=== PATIENT | male | born 1965 | race Caucasian/White ===

== ENCOUNTER → 2017-10-21 08:56 | Outpatient (CLI) | payer OTHER, SELFPAY ==
[2017-10-21 10:19] LABS: Absolute Lymphocyte Count 2.39 X10^3/ul (0.83-4.51); Basophil% 0.8 % (0-1); Eosinophil# 0.24 X10^3/uL; Eosinophils% 1.8 % (0-5); Hematocrit 46.3 % (40-54); Hemoglobin 15.8 g/dl (13.0-16.5); Lymphocyte # 2.39 X10^3/ul (4.0); Lymphocyte % 18.2 % (19-41); Mean Corp Hgb Conc 34.1 g/gl (32-36); Mean Corpuscular Volume 87.9 fL (80-94); Mean Platelet Vol. 9.3 fl (6.2-12.0); Monocyte# 1.25 X10^3/uL; Monocyte% 9.5 % (0-10); Neutrophil # 8.99 X10^3/uL (2.7-7.7); Neutrophil % 68.7 % (47-70); Platelet Count 326 K/mm3 (150-450); RBC Distribution Width CV 14.4 % (11.6-14.6); RBC Distribution Width SD 46.5 fl (35.1-43.9); Red Blood Count 5.27 M/mm3 (4.6-6.2); White Blood Count 13.1 K/mm3 (4.4-11.0)
[2017-10-21 10:20] LABS: POSITIVE COUNT NO; POSITIVE DIFFERENTIAL NO; POSITIVE MORPHOLOGY NO
[2017-10-21 10:38] LABS: ALB/GLOB Ratio 0.9 RATIO (0.9-2.4); AST(SGOT) 24 U/L (15-37); Alanine Aminotransfer ALT/SGPT 46 U/L (16-61); Albumin, Serum 3.9 g/dL (3.2-5.0); Alkaline Phosphatase 162 U/L (45-117); Anion Gap 8 (5-15); BUN 14 mg/dL (7-18); BUN/Creat Ratio 15.6 RATIO (10-20); Calcium,Total 8.5 mg/dL (8.5-10.1); Chloride 104 mmol/L (98-107); EST Glomerular Filtration Rate 95 mL/min (>60); Est Glom Filt Rate - Afr Amer 114 mL/min (>60); Globulin 4.2 g/dL (2.2-4.2); Glucose 161 mg/dL (74-106); Potassium 4.5 mmol/L (3.5-5.1); Protein, Total 8.1 g/dL (6.4-8.2); Sodium Level 136 mmol/L (136-145); Thyroid Stim Hormone (TSH) 3.24 uIU/mL (0.358-3.74)
[2017-10-21 10:41] LABS: Hemoglobin A1c 6.8 % (4.2-6.3)
[2017-10-21 11:19] LABS: Vitamin D,25 Hydroxy 8.4 ng/mL (29.95-100.01)
[2017-10-21 13:27] LABS: Microalbumin,Random Urine 6.8 mg/L (NO RANGE EST.); Microalbumin:Creatinine Ratio 22.5 mg/g CRE (<30 mg/g CRE)
== END ==
PROVIDERS: Family Provider Family Medicine; PCP Family Medicine; Visit Provider Family Medicine
DX: E11.9 Type 2 diabetes mellitus without complications (principal); I10 Essential (primary) hypertension
CPT/HCPCS: 36415; 80053; 82043; 82306; 82570; 83036; 84443; 85025

== ENCOUNTER → 2018-04-03 08:29 | Outpatient (CLI) | payer OTHER, SELFPAY ==
[2018-04-03 10:47] LABS: Hemoglobin A1c 6.4 % (4.2-6.3)
[2018-04-03 10:56] LABS: ALB/GLOB Ratio 0.9 RATIO (0.9-2.4); AST(SGOT) 34 U/L (15-37); Alanine Aminotransfer ALT/SGPT 59 U/L (16-61); Albumin, Serum 3.7 g/dL (3.2-5.0); Alkaline Phosphatase 133 U/L (45-117); Anion Gap 12 (5-15); BUN 13 mg/dL (7-18); Calcium,Total 8.8 mg/dL (8.5-10.1); Chloride 103 mmol/L (98-107); Cholesterol 240 mg/dL (200); Creatinine, Serum 0.87 mg/dL (0.70-1.30); EST Glomerular Filtration Rate 98 mL/min (>60); Est Glom Filt Rate - Afr Amer 119 mL/min (>60); Globulin 4.1 g/dL (2.2-4.2); Glucose 162 mg/dL (74-106); High Density Lipoprotein 37 mg/dL; Potassium 4.5 mmol/L (3.5-5.1); Protein, Total 7.8 g/dL (6.4-8.2); Sodium Level 140 mmol/L (136-145); Triglycerides 385 mg/dL; Very Low Density Lipoprotein 77 mg/dL (5-40)
== END ==
LOC: MFPLAB 08:32
PROVIDERS: Family Provider Family Medicine; PCP Family Medicine; Visit Provider Family Medicine
DX: E11.9 Type 2 diabetes mellitus without complications (principal); I10 Essential (primary) hypertension; R51 Headache
CPT/HCPCS: 36415; 80053; 80061; 83036; 83735; 84443

== ENCOUNTER → 2019-11-06 07:54 | Outpatient (CLI) | payer OTHER, SELFPAY ==
--- NOTE | 2019-11-06 07:59 | US_ITS ---
STUDY: RENAL ULTRASOUND - COMPLETE REASON FOR EXAM: Male, 53 years old. NEPHROLITHIASIS TECHNIQUE: Ultrasound evaluation of the kidneys was performed with real-time and static garcia-scale imaging. COMPARISON: Comparison is made with prior ultrasound dated March 06, 2014. FINDINGS: RIGHT KIDNEY: Normal location of the right kidney, which is normal in size. The right kidney measures 12.6 cm x 5.2 cm x 5.7 cm. There is a normal cortex of the right kidney. The renal cortex measures 2.1 cm. There is a cyst measuring 1.2 cm x 0.6 cm x 1 cm. A nonobstructive calculus is seen measuring 4 mm x 4 mm x 2 mm. There is no right hydronephrosis. DISTAL RIGHT URETER: There is non-visualization of the distal right ureter. There is no demonstrated right ureterovesical junction calculus. There is a visualized right ureteral jet. LEFT KIDNEY: Normal location of the left kidney, which is normal in size. The left kidney measures 11.8 cm x 4.4 cm x 5.8 cm. There is a normal cortex of the left kidney. The renal cortex measures 1.7 cm. There is no left renal mass or cyst. There are no left renal calculi. There is no left hydronephrosis. DISTAL LEFT URETER: There is non-visualization of the distal left ureter. There is no demonstrated left ureterovesical junction calculus. There is no demonstrated left ureteral jet. BLADDER: The distended urinary bladder has a volume of 70 ml. There is a normal wall thickness of the distended urinary bladder. There is no demonstrated mass within the urinary bladder. There are no demonstrated bladder calculi. US/Kidney and Bladder IMPRESSION: 1.2 cm x 0.6 cm x 1 cm right renal cyst. 4 mm x 4 mm x 2 mm calculus in the right upper pole. Electronically Signed: Reinaldo Long, at 9:57 EDT , Service support ,
== END ==
PROVIDERS: PCP Family Medicine; Referring Provider Family Medicine; Visit Provider Family Medicine
DX: N20.0 Calculus of kidney (principal)
CPT/HCPCS: 76770

== ENCOUNTER → 2019-12-12 10:18 | Outpatient (CLI) | payer OTHER, SELFPAY ==
[2019-12-12 12:18] LABS: Absolute Lymphocyte Count 3.24 X10^3/uL (0.83-4.51); Absolute Neutrophil Count 8.5 X10^3/uL (2.0-7.7); Basophil# 0.12 X10^3/uL; Basophil% 0.9 % (0-1); Eosinophil# 0.32 X10^3/uL; Eosinophils% 2.4 % (0-5); Hematocrit 45.1 % (40-54); Hemoglobin 14.6 g/dL (13.0-16.5); Lymphocyte # 3.24 X10^3/ul (4.0); Mean Corp Hgb Conc 32.4 g/dL (32-36); Mean Corpuscular Hgb 29.7 pg (27.0-32.0); Mean Corpuscular Volume 91.9 fL (80-94); Mean Platelet Vol. 9.6 fl (6.2-12.0); Monocyte% 8.9 % (0-10); NRBC Flagged by Analyzer 0 % (0-5); Neutrophil % 63.1 % (47-70); Platelet Count 435 K/mm3 (150-450); RBC Distribution Width SD 47.5 fl (35.1-43.9); Red Blood Count 4.91 M/mm3 (4.6-6.2); White Blood Count 13.5 K/mm3 (4.4-11.0)
[2019-12-12 12:20] LABS: ALB/GLOB Ratio 0.9 RATIO (0.9-2.4); AST(SGOT) 16 U/L (15-37); Alanine Aminotransfer ALT/SGPT 42 U/L (16-61); Albumin, Serum 3.8 g/dL (3.2-5.0); Alkaline Phosphatase 145 U/L (45-117); Anion Gap 6 (5-15); BUN 13 mg/dL (7-18); BUN/Creat Ratio 14.5 RATIO (10-20); Calcium,Total 9.4 mg/dL (8.5-10.1); Chloride 102 mmol/L (98-107); Cholesterol 218 mg/dL (200); EST Glomerular Filtration Rate 93 mL/min (>60); Est Glom Filt Rate - Afr Amer 113 mL/min (>60); Globulin 4.2 g/dL (2.2-4.2); Glucose 148 mg/dL (74-106); High Density Lipoprotein 34 mg/dL; Potassium 4.1 mmol/L (3.5-5.1); Sodium Level 136 mmol/L (136-145); Triglycerides 266 mg/dL; Very Low Density Lipoprotein 53 mg/dL (5-40)
[2019-12-12 13:18] LABS: Microalbumin,Random Urine 9.7 mg/L (NO RANGE EST.); Microalbumin:Creatinine Ratio 13.3 mg/g CRE (<30 mg/g CRE)
[2019-12-12 13:29] LABS: Hemoglobin A1c 7.8 % (4.2-6.3)
== END ==
PROVIDERS: PCP Family Medicine; Referring Provider Family Medicine; Visit Provider Family Medicine
DX: N20.0 Calculus of kidney (principal); E11.9 Type 2 diabetes mellitus without complications; I10 Essential (primary) hypertension
CPT/HCPCS: 36415; 80053; 80061; 82043; 82570; 83036; 85025

== ENCOUNTER → 2020-04-01 08:51 | Outpatient (CLI) | payer OTHER, SELFPAY ==
[2020-04-01 10:04] LABS: Absolute Lymphocyte Count 2.79 X10^3/uL (0.83-4.51); Absolute Neutrophil Count 7.2 X10^3/uL (2.0-7.7); Basophil# 0.13 X10^3/uL; Basophil% 1.1 % (0-1); Eosinophil# 0.31 X10^3/uL; Eosinophils% 2.7 % (0-5); Hematocrit 45.6 % (40-54); Hemoglobin 14.9 g/dL (13.0-16.5); Lymphocyte # 2.79 X10^3/ul (4.0); Mean Corp Hgb Conc 32.7 g/dL (32-36); Mean Corpuscular Hgb 29.4 pg (27.0-32.0); Mean Corpuscular Volume 90.1 fL (80-94); Mean Platelet Vol. 9.4 fl (6.2-12.0); Monocyte# 1.14 X10^3/uL; Monocyte% 9.8 % (0-10); NRBC Flagged by Analyzer 0 % (0-5); Neutrophil # 7.19 X10^3/uL (2.7-7.7); Neutrophil % 61.7 % (47-70); Platelet Count 426 K/mm3 (150-450); RBC Distribution Width CV 13.9 % (11.6-14.6); RBC Distribution Width SD 45.3 fl (35.1-43.9); Red Blood Count 5.06 M/mm3 (4.6-6.2); White Blood Count 11.6 K/mm3 (4.4-11.0)
[2020-04-01 10:51] LABS: Hemoglobin A1c 8.7 % (3.8-5.6)
[2020-04-01 11:00] LABS: ALB/GLOB Ratio 0.8 RATIO (0.9-2.4); AST(SGOT) 20 U/L (15-37); Alanine Aminotransfer ALT/SGPT 38 U/L (16-61); Albumin, Serum 3.6 g/dL (3.2-5.0); Alkaline Phosphatase 131 U/L (45-117); Anion Gap 7 (5-15); BUN 11 mg/dL (7-18); BUN/Creat Ratio 12.5 RATIO (10-20); Calcium,Total 9.1 mg/dL (8.5-10.1); Chloride 100 mmol/L (98-107); Creatinine, Serum 0.88 mg/dL (0.70-1.30); EST Glomerular Filtration Rate 95 mL/min (>60); Est Glom Filt Rate - Afr Amer 115 mL/min (>60); Globulin 4.4 g/dL (2.2-4.2); Glucose 211 mg/dL (74-106); Potassium 3.7 mmol/L (3.5-5.1); Sodium Level 133 mmol/L (136-145)
== END ==
PROVIDERS: PCP Family Medicine; Referring Provider Family Medicine; Visit Provider Family Medicine
DX: E11.9 Type 2 diabetes mellitus without complications (principal); I10 Essential (primary) hypertension
CPT/HCPCS: 36415; 80053; 83036; 85025

== ENCOUNTER 2020-05-01 08:30 | Outpatient (RCR) | payer OTHER, SELFPAY | END 2020-05-14 23:59 | LOC: DC 08:30 | PROVIDERS: PCP Family Medicine; Visit Provider Family Medicine | DX: Z71.3 Dietary counseling and surveillance (principal); E11.9 Type 2 diabetes mellitus without complications | CPT/HCPCS: 97802; G0108 ==

== ENCOUNTER 2020-06-04 09:55 | Outpatient (RCR) | payer OTHER, SELFPAY | END 2020-06-04 23:59 | disposition home or self-care (01) | LOC: DC 09:55 | PROVIDERS: PCP Family Medicine; Visit Provider Family Medicine | DX: E11.9 Type 2 diabetes mellitus without complications (principal) | CPT/HCPCS: G0108 ==

== ENCOUNTER → 2021-02-10 16:00 | Outpatient (CLI) | payer OTHER, SELFPAY ==
--- NOTE | 2021-02-10 16:03 | RAD_ITS ---
STUDY: X-RAY - LUMBAR SPINE REASON FOR EXAM: Male, 55 years old. DDD TECHNIQUE: 3 view(s) of the lumbar spine were obtained. COMPARISON: None FINDINGS: Normal lumbar lordosis. There is no substantial scoliosis. There is a normal alignment of the vertebrae. There is multilevel endplate spondylosis of the lumbar vertebrae. Normal disc space heights. The soft tissue structures are unremarkable. RAD/Lumbar Spine 2 or 3 Views IMPRESSION: Degenerative changes of the spine, as detailed above. Electronically Signed: Ngozi Barrett MD at 5:35 EDT Tel , Service support ,
== END ==
LOC: MTRAD 16:01
PROVIDERS: PCP Family Medicine; Referring Provider Registered Nurse; Visit Provider Registered Nurse
DX: M51.36 Other intervertebral disc degeneration, lumbar region (principal)
CPT/HCPCS: 72100

== ENCOUNTER → 2021-07-06 16:56 | Outpatient (CLI) | payer OTHER, SELFPAY | PROVIDERS: PCP Family Medicine; Visit Provider Family Medicine | DX: Z20.822 Contact with and (suspected) exposure to COVID-19 (principal) | CPT/HCPCS: 87635; U0005; U0003 ==

== ENCOUNTER → 2021-08-04 15:37 | Outpatient (CLI) | payer SELFPAY | PROVIDERS: PCP Family Medicine; Referring Provider Family Medicine; Visit Provider Family Medicine | DX: Z20.822 Contact with and (suspected) exposure to COVID-19 (principal) | CPT/HCPCS: 87635; U0005; U0003 ==

== ENCOUNTER 2021-10-27 08:47 | Outpatient (CLI) | payer OTHER, SELFPAY ==
[2021-10-27 10:22] LABS: ALB/GLOB Ratio 0.9 RATIO (0.9-2.4); AST(SGOT) 11 U/L (15-37); Alanine Aminotransfer ALT/SGPT 23 U/L (16-61); Albumin, Serum 3.8 g/dL (3.2-5.0); Alkaline Phosphatase 115 U/L (45-117); Anion Gap 6 (5-15); BUN 15 mg/dL (7-18); Calcium,Total 9.7 mg/dL (8.5-10.1); Chloride 104 mmol/L (98-107); Creatinine, Serum 0.94 mg/dL (0.70-1.30); EST Glomerular Filtration Rate 88 mL/min (>60); Est Glom Filt Rate - Afr Amer 107 mL/min (>60); Globulin 4.1 g/dL (2.2-4.2); Glucose 140 mg/dL (74-106); Potassium 3.9 mmol/L (3.5-5.1); Protein, Total 7.9 g/dL (6.4-8.2); Sodium Level 136 mmol/L (136-145)
[2021-10-27 10:54] LABS: Microalbumin,Random Urine 11.4 mg/L (NO RANGE EST.); Microalbumin:Creatinine Ratio 19.7 mg/g CRE (<30 mg/g CRE)
== END 2021-10-27 23:59 | disposition home or self-care (01) ==
LOC: MFPLAB 08:48
PROVIDERS: PCP Family Medicine; Referring Provider Family Medicine; Visit Provider Family Medicine
DX: E11.319 Type 2 diabetes mellitus with unspecified diabetic retinopathy without macular edema (principal); I10 Essential (primary) hypertension
CPT/HCPCS: 36415; 80053; 82043; 82570

== ENCOUNTER → 2022-11-05 | Outpatient (CLI) | payer MEDICAID, SELFPAY ==
[2022-11-05 17:57] LABS: Absolute Lymphocyte Count 3.12 X10^3/uL (0.83-4.51); Absolute Neutrophil Count 7.2 X10^3/uL (2.0-7.7); Basophil# 0.16 X10^3/uL; Basophil% 1.3 % (0-1); Eosinophil# 0.45 X10^3/uL; Eosinophils% 3.7 % (0-5); Hematocrit 49.3 % (40-54); Hemoglobin 16.2 g/dL (13.0-16.5); Lymphocyte # 3.12 X10^3/ul (0.83-4.51); Lymphocyte % 25.6 % (19-41); Mean Corp Hgb Conc 32.9 g/dL (32-36); Mean Corpuscular Hgb 30.5 pg (27.0-32.0); Mean Corpuscular Volume 92.8 fL (80-94); Mean Platelet Vol. 9.8 fl (6.2-12.0); Monocyte# 1.13 X10^3/uL; Monocyte% 9.3 % (0-10); NRBC Flagged by Analyzer 0 % (0-5); Neutrophil # 7.22 X10^3/uL (2.7-7.7); Neutrophil % 59.1 % (47-70); Platelet Count 425 K/mm3 (150-450); RBC Distribution Width CV 13.3 % (11.6-14.6); RBC Distribution Width SD 45.1 fl (35.1-43.9); Red Blood Count 5.31 M/mm3 (4.6-6.2); White Blood Count 12.2 K/mm3 (4.4-11.0)
[2022-11-05 18:22] LABS: AST(SGOT) 26 U/L (15-37); Alanine Aminotransfer ALT/SGPT 74 U/L (16-61); Albumin, Serum 3.8 g/dL (3.2-5.0); Alkaline Phosphatase 140 U/L (45-117); Anion Gap 8 (5-15); BUN 13 mg/dL (7-18); BUN/Creat Ratio 15.4 RATIO (10-20); Calcium,Total 9.2 mg/dL (8.5-10.1); Chloride 103 mmol/L (98-107); Creatinine, Serum 0.84 mg/dL (0.70-1.30); EST Glomerular Filtration Rate 99 mL/min (>60); Est Glom Filt Rate - Afr Amer 120 mL/min (>60); Glucose 112 mg/dL (74-106); Potassium 3.6 mmol/L (3.5-5.1); Protein, Total 7.8 g/dL (6.4-8.2); Sodium Level 136 mmol/L (136-145); Thyroid Stim Hormone (TSH) 5.39 uIU/mL (0.358-3.74)
[2022-11-08 10:17] LABS: Free T3 2.6 pg/mL (2.18-3.98); T4 Free Direct 0.84 ng/dL (0.76-1.46)
[2022-11-11 13:05] LABS: Testosterone, % Free 1.72 % (1.50-4.20); Testosterone, Total 244 ng/dL (264-916)
== END | disposition home or self-care (01) ==
LOC: MFPLAB 15:25
PROVIDERS: PCP Family Medicine; Visit Provider Family Medicine
DX: E11.65 Type 2 diabetes mellitus with hyperglycemia (principal); R53.83 Other fatigue
CPT/HCPCS: 36415; 80053; 84402; 84403; 84439; 84443; 84481; 85025

== ENCOUNTER → 2022-11-17 | Outpatient (CLI) | payer MEDICAID, SELFPAY ==
[2022-11-20 10:08] LABS: Testosterone, Free 3.73 ng/dL (5.00-21.00)
[2022-11-20 14:16] LABS: Testosterone, % Free 2.87 % (1.50-4.20); Testosterone, Total 130 ng/dL (264-916)
== END | disposition home or self-care (01) ==
LOC: MFPLAB 10:31
PROVIDERS: PCP Family Medicine; Referring Provider Family Medicine; Visit Provider Family Medicine
DX: R79.89 Other specified abnormal findings of blood chemistry (principal)
CPT/HCPCS: 36415; 84402; 84403

== ENCOUNTER → 2023-01-07 | Outpatient (CLI) | payer MEDICAID, SELFPAY ==
[2023-01-07 12:18] LABS: Absolute Lymphocyte Count 2.86 X10^3/uL (0.83-4.51); Absolute Neutrophil Count 6.3 X10^3/uL (2.0-7.7); Basophil# 0.15 X10^3/uL; Basophil% 1.4 % (0-1); Eosinophil# 0.49 X10^3/uL; Eosinophils% 4.5 % (0-5); Hematocrit 51.1 % (40-54); Hemoglobin 16.6 g/dL (13.0-16.5); Lymphocyte # 2.86 X10^3/ul (0.83-4.51); Lymphocyte % 26.4 % (19-41); Mean Corp Hgb Conc 32.5 g/dL (32-36); Mean Corpuscular Hgb 30.5 pg (27.0-32.0); Mean Corpuscular Volume 93.8 fL (80-94); Mean Platelet Vol. 9.6 fl (6.2-12.0); Monocyte# 0.98 X10^3/uL; NRBC Flagged by Analyzer 0 % (0-5); Neutrophil # 6.29 X10^3/uL (2.7-7.7); Neutrophil % 58.1 % (47-70); Platelet Count 443 K/mm3 (150-450); RBC Distribution Width CV 14.2 % (11.6-14.6); RBC Distribution Width SD 48.8 fl (35.1-43.9); Red Blood Count 5.45 M/mm3 (4.6-6.2); White Blood Count 10.8 K/mm3 (4.4-11.0)
[2023-01-07 12:45] LABS: ALB/GLOB Ratio 0.9 RATIO (0.9-2.4); AST(SGOT) 19 U/L (15-37); Alanine Aminotransfer ALT/SGPT 44 U/L (16-61); Alkaline Phosphatase 133 U/L (45-117); Anion Gap 7 (5-15); BUN 12 mg/dL (7-18); BUN/Creat Ratio 12.4 RATIO (10-20); Calcium,Total 9.4 mg/dL (8.5-10.1); Chloride 103 mmol/L (98-107); Creatinine, Serum 0.96 mg/dL (0.70-1.30); EST Glomerular Filtration Rate 85 mL/min (>60); Est Glom Filt Rate - Afr Amer 103 mL/min (>60); Globulin 4.3 g/dL (2.2-4.2); Glucose 114 mg/dL (74-106); Potassium 4.1 mmol/L (3.5-5.1); Protein, Total 8.3 g/dL (6.4-8.2); Sodium Level 139 mmol/L (136-145)
== END | disposition home or self-care (01) ==
LOC: MFPLAB 10:16
PROVIDERS: PCP Family Medicine; Visit Provider Family Medicine
DX: E11.319 Type 2 diabetes mellitus with unspecified diabetic retinopathy without macular edema (principal); D58.2 Other hemoglobinopathies
CPT/HCPCS: 36415; 80053; 85025

== ENCOUNTER → 2023-02-08 | Outpatient (CLI) | payer MEDICAID, SELFPAY ==
[2023-02-08 10:21] LABS: Absolute Lymphocyte Count 2.48 X10^3/uL (0.83-4.51); Absolute Neutrophil Count 6.8 X10^3/uL (2.0-7.7); Basophil# 0.13 X10^3/uL; Basophil% 1.2 % (0-1); Eosinophil# 0.43 X10^3/uL; Eosinophils% 3.9 % (0-5); Hematocrit 45.8 % (40-54); Hemoglobin 14.8 g/dL (13.0-16.5); Lymphocyte # 2.48 X10^3/ul (0.83-4.51); Lymphocyte % 22.3 % (19-41); Mean Corp Hgb Conc 32.3 g/dL (32-36); Mean Corpuscular Hgb 30.1 pg (27.0-32.0); Mean Corpuscular Volume 93.1 fL (80-94); Mean Platelet Vol. 9.2 fl (6.2-12.0); Monocyte# 1.15 X10^3/uL; Monocyte% 10.4 % (0-10); NRBC Flagged by Analyzer 0 % (0-5); Neutrophil # 6.82 X10^3/uL (2.7-7.7); Neutrophil % 61.3 % (47-70); Platelet Count 486 K/mm3 (150-450); RBC Distribution Width CV 13.9 % (11.6-14.6); RBC Distribution Width SD 47.9 fl (35.1-43.9); Red Blood Count 4.92 M/mm3 (4.6-6.2); White Blood Count 11.1 K/mm3 (4.4-11.0)
[2023-02-08 10:50] LABS: ALB/GLOB Ratio 0.8 RATIO (0.9-2.4); AST(SGOT) 25 U/L (15-37); Alanine Aminotransfer ALT/SGPT 56 U/L (16-61); Albumin, Serum 3.3 g/dL (3.2-5.0); Alkaline Phosphatase 140 U/L (45-117); Anion Gap 7 (5-15); BUN 16 mg/dL (7-18); BUN/Creat Ratio 19.1 RATIO (10-20); Chloride 104 mmol/L (98-107); Creatinine, Serum 0.84 mg/dL (0.70-1.30); EST Glomerular Filtration Rate 100 mL/min (>60); Est Glom Filt Rate - Afr Amer 121 mL/min (>60); Globulin 4.1 g/dL (2.2-4.2); Glucose 105 mg/dL (74-106); Potassium 3.8 mmol/L (3.5-5.1); Protein, Total 7.4 g/dL (6.4-8.2); Sodium Level 139 mmol/L (136-145)
[2023-02-09 17:07] LABS: Deamidated Gliadin IgA 34 units (0-19); Deamidated Gliadin IgG 10 units (0-19); Endomysial Antibody IgA Positive (Negative); Immunoglobulin A 288 mg/dL (90-386); t-Transglutaminase IgA 12 U/mL (0-3)
== END | disposition home or self-care (01) ==
LOC: MFPLAB 09:02
PROVIDERS: PCP Family Medicine; Visit Provider Family Medicine
DX: R19.7 Diarrhea, unspecified (principal); R10.84 Generalized abdominal pain
CPT/HCPCS: 36415; 80053; 82784; 83516; 85025; 86255

== ENCOUNTER → 2023-07-26 | Outpatient (CLI) | payer MEDICAID, SELFPAY ==
[2023-07-26 17:46] LABS: Absolute Lymphocyte Count 2.69 X10^3/uL (0.83-4.51); Absolute Neutrophil Count 6.7 X10^3/uL (2.0-7.7); Basophil# 0.08 X10^3/uL; Basophil% 0.7 % (0-1); Eosinophil# 0.39 X10^3/uL; Eosinophils% 3.5 % (0-5); Hematocrit 48.1 % (40-54); Hemoglobin 15.2 g/dL (13.0-16.5); Lymphocyte # 2.69 X10^3/ul (0.83-4.51); Lymphocyte % 24.5 % (19-41); Mean Corp Hgb Conc 31.6 g/dL (32-36); Mean Corpuscular Hgb 29.5 pg (27.0-32.0); Mean Corpuscular Volume 93.2 fL (80-94); Mean Platelet Vol. 9.4 fl (6.2-12.0); Monocyte# 1.07 X10^3/uL; Monocyte% 9.7 % (0-10); NRBC Flagged by Analyzer 0 % (0-5); Neutrophil # 6.74 X10^3/uL (2.7-7.7); Neutrophil % 61.4 % (47-70); Platelet Count 480 K/mm3 (150-450); RBC Distribution Width CV 14.2 % (11.6-14.6); RBC Distribution Width SD 48.7 fl (35.1-43.9); Red Blood Count 5.16 M/mm3 (4.6-6.2)
[2023-07-26 18:04] LABS: Erythrocyte Sedimentation Rate 10 mm/hr (0-20)
[2023-07-26 18:22] LABS: AST(SGOT) 16 U/L (15-37); Alanine Aminotransfer ALT/SGPT 29 U/L (16-61); Albumin, Serum 3.8 g/dL (3.2-5.0); Alkaline Phosphatase 132 U/L (45-117); Anion Gap 6 (5-15); BUN 9 mg/dL (7-18); BUN/Creat Ratio 11.3 RATIO (10-20); Calcium,Total 8.9 mg/dL (8.5-10.1); Chloride 104 mmol/L (98-107); EST Glomerular Filtration Rate 106 mL/min (>60); Est Glom Filt Rate - Afr Amer 128 mL/min (>60); Glucose 85 mg/dL (74-106); Protein, Total 7.8 g/dL (6.4-8.2); Sodium Level 139 mmol/L (136-145)
[2023-08-03 16:09] LABS: HLA B27 Positive (.)
== END | disposition home or self-care (01) ==
LOC: MFPLAB 14:55
PROVIDERS: PCP Family Medicine; Visit Provider Family Medicine
DX: K92.1 Melena (principal)
CPT/HCPCS: 36415; 80053; 81374; 85025; 85652; 86140

== ENCOUNTER → 2024-02-17 | Outpatient (CLI) | payer MEDICAID, SELFPAY ==
[2024-02-17 14:55] LABS: Hematocrit 49.9 % (40-54); Hemoglobin 16.1 g/dL (13.0-16.5); Mean Corp Hgb Conc 32.3 g/dL (32-36); Mean Corpuscular Hgb 29.7 pg (27.0-32.0); Mean Corpuscular Volume 92.1 fL (80-94); Mean Platelet Vol. 9.7 fl (6.2-12.0); Platelet Count 470 K/mm3 (150-450); RBC Distribution Width CV 14.9 % (11.6-14.6); RBC Distribution Width SD 50.8 fl (35.1-43.9); Red Blood Count 5.42 M/mm3 (4.6-6.2); White Blood Count 11.5 K/mm3 (4.4-11.0)
[2024-02-17 15:27] LABS: Vitamin B12 256 pg/mL (211-911)
[2024-02-17 15:33] LABS: Hemoglobin A1c 6.1 % (3.8-5.6)
[2024-02-17 15:46] LABS: ALB/GLOB Ratio 1.1 RATIO (0.9-2.4); AST(SGOT) 16 U/L (15-37); Alanine Aminotransfer ALT/SGPT 29 U/L (16-61); Alkaline Phosphatase 123 U/L (45-117); Anion Gap 9 (5-15); BUN 16 mg/dL (7-18); BUN/Creat Ratio 19.3 RATIO (10-20); Calcium,Total 9.6 mg/dL (8.5-10.1); Chloride 102 mmol/L (98-107); Creatinine, Serum 0.83 mg/dL (0.70-1.30); EST Glomerular Filtration Rate 101 mL/min (>60); Est Glom Filt Rate - Afr Amer 122 mL/min (>60); Globulin 3.8 g/dL (2.2-4.2); Glucose 94 mg/dL (74-106); Potassium 3.4 mmol/L (3.5-5.1); Protein, Total 7.8 g/dL (6.4-8.2); Sodium Level 139 mmol/L (136-145)
== END | disposition home or self-care (01) ==
LOC: MTLAB 11:31
PROVIDERS: PCP Family Medicine; Referring Provider Family Medicine; Visit Provider Family Medicine
DX: E11.319 Type 2 diabetes mellitus with unspecified diabetic retinopathy without macular edema (principal); E53.8 Deficiency of other specified B group vitamins; M75.82 Other shoulder lesions, left shoulder
CPT/HCPCS: 36415; 80053; 82607; 82746; 83036; 85027

== ENCOUNTER → 2024-06-26 | Outpatient (CLI) | payer MEDICAID, SELFPAY ==
[2024-06-26 12:24] LABS: Absolute Lymphocyte Count 2.95 X10^3/uL (0.83-4.51); Absolute Neutrophil Count 7.3 X10^3/uL (2.0-7.7); Basophil# 0.13 X10^3/uL; Basophil% 1.1 % (0-1); Eosinophils% 4.2 % (0-5); Hematocrit 54.2 % (40-54); Lymphocyte # 2.95 X10^3/ul (0.83-4.51); Lymphocyte % 24.6 % (19-41); Mean Corp Hgb Conc 31.4 g/dL (32-36); Mean Corpuscular Hgb 29.5 pg (27.0-32.0); Mean Corpuscular Volume 94.1 fL (80-94); Mean Platelet Vol. 9.1 fl (6.2-12.0); Monocyte# 1.04 X10^3/uL; Monocyte% 8.7 % (0-10); NRBC Flagged by Analyzer 0 % (0-5); Neutrophil % 60.7 % (47-70); Platelet Count 471 K/mm3 (150-450); RBC Distribution Width CV 14.8 % (11.6-14.6); RBC Distribution Width SD 51.5 fl (35.1-43.9); Red Blood Count 5.76 M/mm3 (4.6-6.2)
[2024-06-26 12:49] LABS: ALB/GLOB Ratio 0.9 RATIO (0.9-2.4); AST(SGOT) 17 U/L (15-37); Alanine Aminotransfer ALT/SGPT 39 U/L (16-61); Albumin, Serum 3.6 g/dL (3.2-5.0); Alkaline Phosphatase 144 U/L (45-117); Anion Gap 8 (5-15); BUN 17 mg/dL (7-18); BUN/Creat Ratio 19.1 RATIO (10-20); Chloride 105 mmol/L (98-107); Creatinine, Serum 0.89 mg/dL (0.70-1.30); EST Glomerular Filtration Rate 93 mL/min (>60); Est Glom Filt Rate - Afr Amer 113 mL/min (>60); Globulin 4.2 g/dL (2.2-4.2); Glucose 135 mg/dL (74-106); Potassium 3.8 mmol/L (3.5-5.1); Protein, Total 7.8 g/dL (6.4-8.2); Sodium Level 139 mmol/L (136-145)
[2024-06-26 13:22] LABS: Microalbumin,Random Urine 16.3 mg/L (NO RANGE EST.); Microalbumin:Creatinine Ratio 9.6 mg/g CRE (<30 mg/g CRE)
== END | disposition home or self-care (01) ==
LOC: MFPLAB 09:28
PROVIDERS: PCP Family Medicine; Visit Provider Family Medicine
DX: E11.319 Type 2 diabetes mellitus with unspecified diabetic retinopathy without macular edema (principal); G47.9 Sleep disorder, unspecified
CPT/HCPCS: 36415; 80053; 82043; 82570; 85025

== ENCOUNTER → 2024-09-06 | Outpatient (CLI) | payer MEDICAID, SELFPAY ==
--- NOTE | 2024-09-06 14:18 | RAD_ITS ---
INDICATION: CHRONIC SINUSITIS EXAMINATION/TECHNIQUE: X-RAY - XR Chest 2 Views COMPARISON: 02/08/2014. FINDINGS: The lungs are clear. Tortuous and calcified thoracic aorta. The heart is not enlarged. No pleural effusion or pneumothorax. No acute osseous abnormalities. RAD/Chest PA and Lateral IMPRESSION: No acute radiographic abnormalities. Electronically Signed: Sly Bennett MD at 22:09 EST ,
== END | disposition home or self-care (01) ==
PROVIDERS: PCP Family Medicine
DX: J32.9 Chronic sinusitis, unspecified (principal)
CPT/HCPCS: 71046

== ENCOUNTER → 2024-09-06 | Outpatient (CLI) | payer MEDICAID, SELFPAY ==
[2024-09-06 17:47] LABS: Absolute Lymphocyte Count 2.52 X10^3/uL (0.83-4.51); Absolute Neutrophil Count 7.4 X10^3/uL (2.0-7.7); Basophil# 0.13 X10^3/uL; Basophil% 1.1 % (0-1); Eosinophil# 0.33 X10^3/uL; Eosinophils% 2.8 % (0-5); Hematocrit 52.5 % (40-54); Lymphocyte # 2.52 X10^3/ul (0.83-4.51); Lymphocyte % 21.5 % (19-41); Mean Corp Hgb Conc 32.4 g/dL (32-36); Mean Corpuscular Hgb 29.7 pg (27.0-32.0); Mean Corpuscular Volume 91.8 fL (80-94); Mean Platelet Vol. 9.2 fl (6.2-12.0); Monocyte# 1.28 X10^3/uL; Monocyte% 10.9 % (0-10); NRBC Flagged by Analyzer 0 % (0-5); Neutrophil # 7.42 X10^3/uL (2.7-7.7); Neutrophil % 63.4 % (47-70); Platelet Count 522 K/mm3 (150-450); RBC Distribution Width SD 47.3 fl (35.1-43.9); Red Blood Count 5.72 M/mm3 (4.6-6.2); White Blood Count 11.7 K/mm3 (4.4-11.0)
== END | disposition home or self-care (01) ==
LOC: MFPLAB 14:07
PROVIDERS: PCP Family Medicine
DX: J32.9 Chronic sinusitis, unspecified (principal)
CPT/HCPCS: 36415; 85025

== ENCOUNTER → 2024-12-14 | Outpatient (CLI) | payer MEDICARE, MEDICAID, SELFPAY ==
[2024-12-14 10:50] LABS: Absolute Lymphocyte Count 2.88 X10^3/uL (0.83-4.51); Absolute Neutrophil Count 7.5 X10^3/uL (2.0-7.7); Basophil# 0.15 X10^3/uL; Basophil% 1.3 % (0-1); Eosinophil# 0.27 X10^3/uL; Eosinophils% 2.3 % (0-5); Hematocrit 51.3 % (40-54); Hemoglobin 17.4 g/dL (13.0-16.5); Lymphocyte # 2.88 X10^3/ul (0.83-4.51); Mean Corp Hgb Conc 33.9 g/dL (32-36); Mean Corpuscular Hgb 30.4 pg (27.0-32.0); Mean Corpuscular Volume 89.5 fL (80-94); Mean Platelet Vol. 9.4 fl (6.2-12.0); Monocyte# 1.16 X10^3/uL; Monocyte% 9.7 % (0-10); NRBC Flagged by Analyzer 0 % (0-5); Neutrophil # 7.47 X10^3/uL (2.7-7.7); Neutrophil % 62.3 % (47-70); Platelet Count 473 K/mm3 (150-450); RBC Distribution Width CV 14.4 % (11.6-14.6); RBC Distribution Width SD 46.6 fl (35.1-43.9); Red Blood Count 5.73 M/mm3 (4.6-6.2)
[2024-12-14 11:02] LABS: Hemoglobin A1c 6.2 % (<=5.6)
[2024-12-14 11:20] LABS: ALB/GLOB Ratio 1.5 RATIO (0.9-2.4); AST(SGOT) 18 U/L (<=37); Alanine Aminotransfer ALT/SGPT 20 U/L (<=46); Albumin, Serum 4.4 g/dL (3.5-5.0); Alkaline Phosphatase 153 U/L (40-129); Anion Gap 14 (5-15); BUN 17 mg/dL (4-19); BUN/Creat Ratio 16.7 RATIO (10-20); Calcium,Total 9.2 mg/dL (7.6-11.0); Carbon Dioxide 25.4 mmol/L (21.0-32.0); Chloride 99 mmol/L (98-108); Cholesterol 111 mg/dL (<=200); EST Glomerular Filtration Rate 87 (>60); Globulin 2.9 g/dL (2.2-4.2); Glucose 132 mg/dL (70-99); High Density Lipoprotein 38 mg/dL; Low Density Lipoprotein Calc. 30 mg/dL; Potassium 3.9 mmol/L (3.3-5.1); Protein, Total 7.3 g/dL (5.9-8.4); Sodium Level 138 mmol/L (133-145); Total Bilirubin 0.51 mg/dL (0.00-1.30); Triglycerides 215 mg/dL; Very Low Density Lipoprotein 43 mg/dL (5-40); Vitamin B12 762 pg/mL (180-914); cholesterol:hdl ratio screen 2.93
[2024-12-14 11:54] LABS: PSA,Total - Annual Screen 2.88 ng/mL (0.02-4.00)
[2024-12-14 15:47] LABS: Folates, Serum 8.68 ng/mL (4.60-34.80)
== END | disposition home or self-care (01) ==
LOC: LAB 08:08
PROVIDERS: PCP Family Medicine; Referring Provider Family Medicine; Visit Provider Family Medicine
DX: D75.839 Thrombocytosis, unspecified (principal); E11.8 Type 2 diabetes mellitus with unspecified complications; I25.10 Atherosclerotic heart disease of native coronary artery without angina pectoris; Z12.5 Encounter for screening for malignant neoplasm of prostate
CPT/HCPCS: 36415; 80053; 80061; 82607; 82746; 83036; 84153; 84402; 84403; 85025; G0103

== ENCOUNTER → 2025-03-05 | Outpatient (CLI) | payer MEDICARE, SELFPAY ==
--- NOTE | 2025-03-05 12:36 | RAD_ITS ---
PROCEDURE: FOOT MIN 3 VIEWS 03/05/2025 REASON FOR EXAM: FOOT PAIN TECHNIQUE: FOOT MIN 3 VIEWS COMPARISON: No FINDINGS: Posterior calcaneal enthesophyte. No significant osteoarthritis. No acute bone or soft tissue pathology. RAD/Foot min 3 Views IMPRESSION: No acute findings Reading Location: [place] [id number]
== END | disposition home or self-care (01) ==
LOC: MTRAD 12:36
PROVIDERS: PCP Family Medicine
DX: M79.671 Pain in right foot (principal)
CPT/HCPCS: 73630

== ENCOUNTER → 2025-07-17 | Outpatient (CLI) | payer MEDICARE, SELFPAY ==
--- NOTE | 2025-07-17 15:01 | RAD_ITS ---
PROCEDURE: HIP, UNI W/ PELVIS 2-3 VIEWS 07/17/2025 REASON FOR EXAM: R HIP PIAIN, S/P USE STEROID; RIGHT TECHNIQUE: Procedure Code: [facility] Modality: DX Procedure: HIP, UNI W/ PELVIS 2-3 VIEWS Laterality: Right COMPARISON: None FINDINGS: The bony pelvis is intact. The SI joints are normal. There is no significant degenerative disc disease, L3-4 through L5-S1. There are vascular calcifications in the pelvis and proximal thighs.. AP view of the left hip demonstrates no significant abnormality. AP and lateral views of the right hip demonstrate no evidence of fracture or dislocation. There is no significant arthropathy. The periarticular soft tissues are normal. RAD/HIP, UNI W/ Pelvis 2-3 Views IMPRESSION: No significant abnormality of the right hip. Other findings as noted. Reading Location: [id number]
== END | disposition home or self-care (01) ==
LOC: MTRAD 15:00
PROVIDERS: PCP Family Medicine; Referring Provider Family Medicine; Visit Provider Family Medicine
DX: M25.551 Pain in right hip (principal)
CPT/HCPCS: 73502